=== PATIENT | female | born 2005 | race Caucasian/White ===

== ENCOUNTER 2025-01-18 13:15 | Emergency (ER) | payer OTHER, SELFPAY ==
[2025-01-18 13:20] VITALS: BP 134/99; PULSE 90; RESP 16; TEMP 37; O2SAT 100
--- OUTSIDE RECORDS SUMMARY | 2025-01-18 13:39 | XMS_ITS | Clinical Summary ---
Author Organization [facility] Address [address] [place] [address] Care Team Providers Care Express Manager Name Role Phone Provider, Not On File Primary Care Provider Unav ailable Allergies Active Allergy Reactions Criticality Noted Date Comments Amoxicillin-Pot Clavulanate Rash 04/15/19 25 Tolerates AMOX Medications estradiol (ESTRACE) 1 MG Tablet Take 1 mg by mouth daily. Hazardous: Medication requires special safe handling and disposal. Active SPIRONOLACTONE PO Take by mouth. Activ e ondansetron (ZOFRAN-ODT) 4 MG TABLET DISPERSIBLEIndi cations:Nausea Take 1 Tablet by mouth every 8 hours as needed for Nausea - 1st line. 30 Tablet 4 Active Additional Information Patient not taking.Reported on 10/25/2024 chlorhexidine (PERIDEX) 0.12 % SolutionIndicat ions:Dentalgia 15 mL by Swish & Spit route 2 times daily. 118 mL 4 Active naproxen (NAPROSYN) 500 MG TabletIndicatio ns:Dentalgia Take 1 Tablet by mouth 2 times daily (with meals). 60 Tablet 4 Active Acetaminophen-C affeine (EXCEDRIN TENSION HEADACHE PO) Take by mouth. Ac tive Active Problems No known active problems Encounters Date Type Department Care Team Description 10/25/2024 1:45 PM CDT Urgent Care Visit [facility] [place] [facility] [place] [address] [place] [address] Tegan Pinto, PURCHASING MANAGER, EQUIPMENT MAINTENANCE SUPERVISOR Dental infection (Primary Dx) Discharge Disposition: Discharged to home or Selfcare 10/25/2024 Travel from Last 3 Months Social History Tobacco Use Types Packs/Day Years Used Date Smoking Tobacco: Never Passive Smoke Exposure: Never Smokeless Tobacco: Never Tobacco Cessation:Counseling Given: Not Answered Sex and Gender Information Value Date Recorded Sex Assigned at Male 11/28/2023 6:02 PM CDT Legal Sex Male 9:10 AM SNUFF GRINDER AND SCREENER Gender Identity Female 11/28/2023 6:02 PM CDT Sexual Orientation Not on file Last Filed Vital Signs Vital Sign Reading Time Taken Comments Blood Pressure 116/69 10/25/2024 1:46 PM CDT Pulse 86 10/25/2024 1:46 PM CDT Temperature 36.5 C (97.7 F) 10/25/2024 1:46 PM CDT Respiratory Rate 16 10/25/2024 1:46 PM CDT Oxygen Saturation 97% 10/25/2024 1:46 PM CDT Inhaled Oxygen Concentration - - Weight 63.5 kg (140 lb) 10/25/2024 1:46 PM CDT Height 170.2 cm (5' 7) 10/25/2024 1:46 PM CDT Body Mass Index 21.93 10/25/2024 1:46 PM CDT Plan of Treatment Health Maintenance Due Date Last Done Comments Hepatitis C Virus (HCV) Screening 2003 Meningococcal B Immunization (1 of 2 - Standard) 2019 Influenza Immunization (#1) 2024 01/09/2024 SARS-COV-2 Immunization (3 - season) 2024 11/02/2020, 10/12/2020 Respiratory Syncytial Virus (RSV) Immunization (Adult) (1 - 1-dose 75+ series) 08/25/2078 Hepatitis B Immunization Completed 005, 05/30/2004, 01/12/2004, Additional history exists Pneumococcal Immunization Combined Aged Out 12/07/2004, 05/30/2004, 01/12/2004, Additional history exists No longer eligible based on patient's age to complete this topic Measles Mumps Rubella (MMR) Immunization Discontinued 10/23/2008, 12/07/2004 Polio (IPV) Immunization Discontinued 009, 10/23/2008, 05/30/2004, Additional history exists Varicella Immunization Discontinued 10/23/2008, 2004 Hepatitis A Immunization Discontinued 05/28/2014, 10/25 Human Papillomavirus (HPV) Immunization Completed 05/31/2016, 12/01/2015 Meningococcal Immunization (ACWY) Completed 01/12/2021, 11/23/2014 DTaP/Tdap/Td Immunization Discontinued 2023, 11/21/2013, 10/23/2008, Additional history exists TdaP Immunization Completed 07/10/2023, 11/21/2013 Rotavirus Immunization Aged Out No lo nger eligible based on patient's age to complete this topic Insurance ID [employer]CIAL [employer]IC on file MEDICAID [employer] Care Teams Express Manager Relationship Specialty Start Date End Date Provider, Not On File [place] PCP - General 06/16/23
--- OUTSIDE RECORDS SUMMARY | 2025-01-18 13:39 | XMS_ITS | Encounter Summary ---
Author Organization [facility] Address [address] [place] [address] Phone Care Team Providers Care Digital Computer Systems Analyst Name Role Phone Georgina Elias MD Primary Care Provider [phone] Encounter Details Date Type Department Care Team (Late st Contact Info) Description 03/22/2018 Scanned Document Non [facility] Referring Docs Provider, Outside Social History Tobacco Use Types Packs/Day Years Used Date Smoking Tobacco: Never Smokeless Tobacco: Never Sex and Gender Information Value Date Recorded Sex Assigned at Male 09/30/2021 4:03 PM CDT Legal Sex Male 4:03 PM CDT Gender Identity Female 09/30/2021 4:03 PM CDT Sexual Orientation Not on file documented as of this encounter Plan of Treatment Upcoming Encounters Date Type Department Care Team (Late st Contact Info) Description 03/25/2025 1:40 PM BARGE CAPTAIN Office Visit [facility] [address] [place] [address] Georgina Elias MD [address] [place] [address] documented as of this encounter Visit Diagnoses Not on filedocumented in this encounter Additional Health Concerns Infection Onset Date Last Indicated Resolved Time Suspected COVID-19 12/04/2019 12/04/2019 0 3:44 PM CDT Suspected COVID-19 02/11/2020 02/11/2020 0 9:17 PM BARGE CAPTAIN Suspected COVID-19 04/23/2020 04/23/2020 1 6:40 PM BARGE CAPTAIN Suspected COVID-19 01/22/2023 01/29/2023 3 10:04 PM BARGE CAPTAIN documented as of this encounter Care Teams Digital Computer Systems Analyst Relationship Specialty Start Date End Date Georgina Elias MD [address] [place] [address] PCP - General Family Medicine 06/09/21 documented as of this encounter
--- OUTSIDE RECORDS SUMMARY | 2025-01-18 13:39 | XMS_ITS | Encounter Summary ---
Author Organization [facility] Address [address] [place] [address] Phone Care Team Providers Care Towboat Engineer Name Role Phone Georgina Elias MD Primary Care Provider [phone] Reason for Visit * Reason Onset Date Comments Clinical SX During Covid-19 Outbreak 02/10/2020 Encounter Details Date Type Department Care Team (Late st Contact Info) Description 02/10/2020 Telephone [facility] [address] [place] [address] Kam Buckner DO [address] [place] [address] Clinical SX During Covid-19 Outbreak Social History Tobacco Use Types Packs/Day Years Used Date Smoking Tobacco: Never Smokeless Tobacco: Never Sex and Gender Information Value Date Recorded Sex Assigned at Male 09/30/2021 4:03 PM CDT Legal Sex Male 4:03 PM CDT Gender Identity Female 09/30/2021 4:03 PM CDT Sexual Orientation Not on file COVID-19 Exposure Response Date Recorded In the last month, have you been in contact with someone who was confirmed or suspected to have Coronavirus / COVID-19? No / Unsure 02/11/2020 9:35 AM ENGINEERING SUPERVISOR documented as of this encounter Miscellaneous Notes * Telephone Encounter - Zari Reyna - 02/10/2020 10:43 AM CST Patient called regarding possible COVID symptoms. Patient screened through [facility] COVID screening questions and advised to present to the approved testing site. Patient advised clinical staff on-site may re-screen. NEERING SUPERVISOR documented in this encounter Plan of Treatment Upcoming Encounters Date Type Department Care Team (Late st Contact Info) Description 03/25/2025 1:40 PM ENGINEERING SUPERVISOR Office Visit [facility] [place] [address] [place] [address] Georgina Elias MD [address] [place] [address] documented as of this encounter Visit Diagnoses Not on filedocumented in this encounter Additional Health Concerns Infection Onset Date Last Indicated Resolved Time Suspected COVID-19 02/11/2020 02/11/2020 0 9:17 PM ENGINEERING SUPERVISOR Suspected COVID-19 04/23/2020 04/23/2020 1 6:40 PM ENGINEERING SUPERVISOR Suspected COVID-19 01/22/2023 01/29/2023 3 10:04 PM ENGINEERING SUPERVISOR documented as of this encounter Care Teams Towboat Engineer Relationship Specialty Start Date End Date Georgina Elias MD [address] [place] [address] PCP - General Family Medicine 06/09/21 documented as of this encounter
--- OUTSIDE RECORDS SUMMARY | 2025-01-18 13:39 | XMS_ITS | Encounter Summary ---
Author Organization [facility] Address [address] [place] [address] Phone Care Team Providers Care Sourcing Analyst Name Role Phone Georgina Elias MD Primary Care Provider [phone] Encounter Details Date Type Department Care Team (Late st Contact Info) Description 11/24/2020 Telephone [facility] [address] [place] [address] Kam Buckner DO [address] [place], [place] [id number] Social History Tobacco Use Types Packs/Day Years Used Date Smoking Tobacco: Never Smokeless Tobacco: Never Sex and Gender Information Value Date Recorded Sex Assigned at Male 09/30/2021 4:03 PM CDT Legal Sex Male 4:03 PM CDT Gender Identity Female 09/30/2021 4:03 PM CDT Sexual Orientation Not on file documented as of this encounter Miscellaneous Notes * Telephone Encounter - Tatiana Hannon - 11/26/2020 4:45 PM CDT Scheduled 12/02/20 * Telephone Encounter - Monica Carter CMA - 11/24/2020 2:17 PM CDT Patient is scheduled for a [facility] visit tomorrow. Patient has not been seen since 2019. Needs physicalfor vaccines. documented in this encounter Plan of Treatment Upcoming Encounters Date Type Department Care Team (Late st Contact Info) Description 03/25/2025 1:40 PM PHARMACY TECHNICIAN INSTRUCTOR Office Visit [facility] [address] [place] [address] Georgina Elias MD [address] [place] [address] documented as of this encounter Visit Diagnoses Not on filedocumented in this encounter Additional Health Concerns Infection Onset Date Last Indicated Resolved Time Suspected COVID-19 01/22/2023 01/29/2023 10:04 PM PHARMACY TECHNICIAN INSTRUCTOR documented as of this encounter Care Teams Sourcing Analyst Relationship Specialty Start Date End Date Georgina Elias MD [address] [place] [address] PCP - General Family Medicine 06/09/21 documented as of this encounter
--- OUTSIDE RECORDS SUMMARY | 2025-01-18 13:39 | XMS_ITS | Encounter Summary ---
Author Organization [facility] Address [address] [place] [address] Phone Care Team Providers Care Pressure Tank Operator Name Role Phone Georgina Elias MD Primary Care Provider [phone] Encounter Details Date Type Department Care Team ([facility] Contact Info) Description 03/21/2021 Telephone [facility] [address], [place] [address] Kam Buckner DO [address] [place] [address] Social History Tobacco Use Types Packs/Day Years Used Date Smoking Tobacco: Every Day Cigarettes Smokeless Tobacco: Never Alcohol Use Standard Drinks/Week Comments Never 0 (1 standard drink = 0.6 oz pur e alcohol) Sex and Gender Information Value Date Recorded Sex Assigned at Male 09/30/2021 4:03 PM CDT Legal Sex Male 4:03 PM CDT Gender Identity Female 09/30/2021 4:03 PM CDT Sexual Orientation Not on file COVID-19 Exposure Response Date Recorded In the last month, have you been in contact with someone who was confirmed or suspected to have Coronavirus / COVID-19? No / Unsure 03/21/2021 2:31 PM HEAD REFRIGERATING ENGINEER documented as of this encounter Plan of Treatment Upcoming Encounters Date Type Department Care Team ([facility] Contact Info) Description 03/25/2025 1:40 PM HEAD REFRIGERATING ENGINEER Office Visit [facility] [address] [place] [address] Georgina Elias MD [address] [place] [address] documented as of this encounter Visit Diagnoses Not on filedocumented in this encounter Additional Health Concerns Infection Onset Date Last Indicated Resolved Time Suspected COVID-19 01/22/2023 01/29/2023 10:04 PM HEAD REFRIGERATING ENGINEER documented as of this encounter Care Teams Pressure Tank Operator Relationship Specialty Start Date End Date Georgina Elias MD [address] [place] [address] PCP - General Family Medicine 06/09/21 documented as of this encounter
--- OUTSIDE RECORDS SUMMARY | 2025-01-18 13:39 | XMS_ITS | Encounter Summary ---
Author Organization [facility] Address [address] [place] [address] Phone Care Team Providers Care Medical Researcher Name Role Phone Georgina Elias MD Primary Care Provider [phone] Reason for Visit * Reason Onset Date Comments Clinical SX During Covid-19 Outbreak 04/22/2020 Encounter Details Date Type Department Care Team (Late st Contact Info) Description 04/22/2020 Telephone [facility] Appointment Request [address] [place] [address] Kam Buckner, [address] [place] [address] Clinical SX During Covid-19 Outbreak [...] have Coronavirus / COVID-19? No / Unsure 04/12/2020 11:18 AM CLEARING SUPERVISOR documented as of this encounter Miscellaneous Notes * Telephone Encounter - Osito Cantu - 04/22/2020 1:10 PM CST Patient called to request COVID testing. COVID Related Symptoms: Fever, congestion, cough, runny nose Confirmed Exposure: No Pt screened through [facility] COVID guidelines and directed to report to testing site. Patient aware thaton-site clinical staff may pre-screen. RING SUPERVISOR documented in this encounter Plan of Treatment Upcoming Encounters Date Type Department Care Team (Late st Contact Info) Description 03/25/2025 1:40 PM CLEARING SUPERVISOR Office Visit [facility] [address] [place] [address] Georgina Elias MD [address] [place] [address] documented as of this encounter Visit Diagnoses Not on filedocumented in this encounter Additional Health Concerns Infection Onset Date Last Indicated Resolved Time Suspected COVID-19 04/23/2020 04/23/2020 1 6:40 PM CLEARING SUPERVISOR Suspected COVID-19 01/22/2023 01/29/2023 3 10:04 PM CLEARING SUPERVISOR documented as of this encounter Care Teams Medical Researcher Relationship Specialty Start Date End Date Georgina Elias MD [address] [place] [address] PCP - General Family Medicine 06/09/21 documented as of this encounter
--- OUTSIDE RECORDS SUMMARY | 2025-01-18 13:39 | XMS_ITS | Encounter Summary ---
Author Organization [employer] [facility] Address [address] [place] [address] Phone Care Team Providers Care Temperer Name Role Phone Georgina Elias MD Primary Care Provider [phone] Reason for Visit * Reason Onset Date Comments Results 12/05/2019 Encounter Details Date Type Department Care Team (Late st Contact Info) Description 12/05/2019 Telephone [facility] [address] [place] [address] Akash Rushing MD [address] [place] [address] Results Social History Tobacco Use Types Packs/Day Years [...] have Coronavirus / COVID-19? No / Unsure 12/04/2019 8:12 AM CDT documented as of this encounter Miscellaneous Notes * Telephone Encounter - Lorena Woodall RN - 12/05/2019 11:29 AM CDT Informed patient of negative COVID-19 results. Instructed patient to maintain the following precautions: The Centers of Disease Control (CDC) has advises to continue to stay home for 24 hours after resolution of fever without the use of fever-reducing medications and improvement in symptoms Patient verbalized understanding of instructions. documented in this encounter Plan of Treatment Upcoming Encounters Date Type Department Care Team (Late st Contact Info) Description 03/25/2025 1:40 PM DIRECTOR OF NEUROLOGY Office Visit [facility] [place] [address] [place] [address] Georgina Elias MD [address] [place] [address] documented as of this encounter Visit Diagnoses Not on filedocumented in this encounter Additional Health Concerns Infection Onset Date Last Indicated Resolved Time Suspected COVID-19 02/11/2020 02/11/2020 0 9:17 PM DIRECTOR OF NEUROLOGY Suspected COVID-19 04/23/2020 04/23/2020 1 6:40 PM DIRECTOR OF NEUROLOGY Suspected COVID-19 01/22/2023 01/29/2023 3 10:04 PM DIRECTOR OF NEUROLOGY documented as of this encounter Care Teams Temperer Relationship Specialty Start Date End Date Georgina Elias MD [address] [place] [address] PCP - General Family Medicine 06/09/21 documented as of this encounter
--- OUTSIDE RECORDS SUMMARY | 2025-01-18 13:39 | XMS_ITS | Clinical Summary ---
Author Organization [facility] Address [address] [place] [address] Phone Care Team Providers Care Security Nurse Name Role Phone Georgina Elias MD Primary Care Provider [phone] Allergies Active Allergy Reactions Criticality Noted Date Comments Amoxicillin-Pot Clavulanate Rash Low 04/15/19 25 Tolerates AMOX Medications * This document contains information received from the source organization and may not represent a complete record from that organization. ondansetron 4 mg rapid dissolve tablet Take 1 tablet by mouth every 8 (eight) hours as needed 4 Active naproxen (NAPROSYN) 500 mg tablet Take 500 mg by mouth 2 (two) times daily with meals 4 Active chlorhexidine gluconate 0.12 % mouthwash 15 mLs in the morning and at bedtime 4 Active spironolactone (ALDACTONE) 50 mg tabletIndication s:Zguh-je-lgfgoa transgender person Take 1 tablet (50 mg total) by mouth every day 90 tablet 3 4 Active estradioL (VIVELLE-DOT) 0.1 mg/24 hr twice weekly transderm patchIndications :Tark-ji-npyoqs transgender person Apply 1 patch topically 2 (two) times a week 8 patch 12 5 Active Active Problems Problem Noted Date Diagnosed Date Jjiy-ml-xapkmu transgender person 03/21/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 Autism spectrum disorder 11/13/2017 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 Resolved Problems Problem Noted Date Diagnosed Date Resolved Date Adolescent depression 10/27/20212023 Paronychia of great toe of right foot 04/30/2019 03/21/2021 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 11/13/2017 Immunizations Immunization Administration Dates Next Due DTaP-Acellular (Infanrix) 10/23/2008,,05/30/2004,01/11,2003 HEP B - Engerix 0.5ml 05/30/2004, 004,2003,08/25 HIB (ACTHIB) 04/20/2005, 5,01/12/2004,10/28 Hepatitis A - Pediatric 05/28/2014,11/21/2013 Human Papillomavirus (Gardasil 9) 05/31/2016,09/2015 INFLUENZA SPLIT VIRUS TRIVAL ENT PF (Fluzone/Flulaval/Fluarix/Afluria PF) 01/09/2024 Uxxvvcu-Ovtkc-Fkbavcd - MMR 10/23/2008, 5 Meningococcal (MENACTRA) 11/23/2014 Meningococcal (MENVEO) 01/12/2021 Pneumococcal Conjugate-13 (PREVNAR 13) 0 12/07/2004,05/30/2004,01/12/2004,10/28 Polio Virus (IPOL) 10/23/2008, 5,01/12/2004,10/28 SARS-CoV-2 (Pfizer Monovalen t COVID-19) 11/02/2020,10/12/2020 T-dap (BOOSTRIX) 07/10/2023,11/21/2013 Varicella (VARIVAX) 10/23/2008,12/07/2004 Social History Tobacco Use Types Packs/Day Years Used Date Smoking Tobacco: Former Cigarettes 0.3 2.5 2 - 09/2022 Smokeless Tobacco: Never Tobacco Cessation:Counseling Given: Not Answered Alcohol Use Standard Drinks/Week Comments Never 0 (1 standard drink = 0.6 oz pur e alcohol) Sex and Gender Information Value Date Recorded Sex Assigned at Male 09/30/2021 4:03 PM CDT Legal Sex Male 4:03 PM CDT Gender Identity Female 09/30/2021 4:03 PM CDT Sexual Orientation Not on file Last Filed Vital Signs Vital Sign Reading Time Taken Comments Blood Pressure 122/48 05/14/2024 3:08 PM GELATIN DYNAMITE PACKING OPERATOR Pulse 64 05/14/2024 3:08 PM GELATIN DYNAMITE PACKING OPERATOR Temperature 36.8 C (98.3 F) 05/14/2024 3:08 PM GELATIN DYNAMITE PACKING OPERATOR Respiratory Rate 18 04/25/2019 8:52 AM GELATIN DYNAMITE PACKING OPERATOR Oxygen Saturation 98% 01/09/2024 3:10 PM CDT Inhaled Oxygen Concentration - - Weight 71.8 kg (158 lb 3.2 oz) 05/14/2024 3:08 P M GELATIN DYNAMITE PACKING OPERATOR Height 172.7 cm (5' 8) 05/14/2024 3:08 PM GELATIN DYNAMITE PACKING OPERATOR Body Mass Index 24.05 05/14/2024 3:08 PM GELATIN DYNAMITE PACKING OPERATOR Plan of Treatment Upcoming Encounters Date Type Department Care Team (Late st Contact Info) Description 03/25/2025 1:40 PM GELATIN DYNAMITE PACKING OPERATOR Office Visit [facility] [address] [place] [address] Georgina Elias MD [address] [place] [address] Health Maintenance Due Date Last Done Comments Meningococcal B Vaccine (1 of 2 - Standard) 2019 Pap Smear 08/25/2024 COVID-19 Vaccine (3 - season) 2024 11/02/2020, 10/12/2020 Influenza Vaccine (#1) 2024 , 01/17/2021 (Declined) Depression Screening 01/08/2025 01/09/2024, 12/15/2021, 01/12/2021 DTaP/Tdap/Td Vaccines (8 - Td or Tdap) 07/09/2033 07/10/2023, 11/21/2013, 10/23/2008, Additional history exists Hepatitis B Vaccines Completed 05/30/2004, 01/12/2004, 2003, Additional history exists Pneumococcal Vaccines Completed 12/07/2004 , 05/30/2004, 01/12/2004, Additional history exists HIB Vaccines Completed 04/20/2005, 09/2004, 01/12/2004, Additional history exists IPV Vaccines Completed 10/23/2008, 09/2004, 01/12/2004, Additional history exists MMR Vaccines Completed 10/23/2008, 12/07/2004 Varicella Vaccines Completed 10/23/2008, 12/07/2004 Hepatitis A Vaccines Completed 05/28/2014, 11/22/19 HPV Vaccines Completed 05/31/2016, 12/01/2015 Meningococcal Vaccine (ACWY) Completed 01/12/2021, 11/23/2014 Rotavirus Vaccines Aged Out No longer eligible based on patient's age to complete this topic Insurance Member Subscriber Plan / Payer (Ef fective 2023-Present) Name:Wilberto Diaz Relation to Subscriber:Self Name:Wilberto Diaz Payer ID:[id number] Group ID:Not on file Type:Medicaid Address: [address] Member Subscriber Plan / Payer (Ef fective 2023-Present) Name:Wilberto Diaz Relation to Subscriber:Self Name:Wilberto Diaz Payer ID:[id number] Group ID:Not on file Type:Medicaid Address: [place] [id number] Care Teams Security Nurse Relationship Specialty Start Date End Date Georgina Elias MD [address] [place] [id number] PCP - General Family Medicine 06/09/21
--- OUTSIDE RECORDS SUMMARY | 2025-01-18 13:39 | XMS_ITS | Encounter Summary ---
Author Organization [facility] Address [address] [place] [address] Phone Care Team Providers Care Airline Counter Agent Name Role Phone Georgina Elias MD Primary Care Provider [phone] Reason for Visit * Reason Onset Date Comments !Other 01/18/2024 COVID shot Encounter Details Date Type Department Care Team (Late st Contact Info) Description 01/18/2024 Telephone [facility] [address], [place] [id number] Georgina Elias MD [address], [place] [address] !Other (COVID shot) Social History Tobacco Use Types Packs/Day Years Used Date Smoking Tobacco: Former Cigarettes 0.3 2.5 2 021 - 09/2022 Smokeless Tobacco: Never Alcohol Use Standard Drinks/Week Comments Never 0 (1 standard drink = 0.6 oz pur e alcohol) Sex and Gender Information Value Date Recorded Sex Assigned at Male 09/30/2021 4:03 PM CDT Legal Sex Male 4:03 PM CDT Gender Identity Female 09/30/2021 4:03 PM CDT Sexual Orientation Not on file documented as of this encounter Miscellaneous Notes * Telephone Encounter - Wilberto Mcknight - 01/23/2024 3:05 PM CDT Left another message * Telephone Encounter - Wilberto Mcknight - 01/18/2024 3:07 PM CDT Left message to inform patient that the [facility] office will not be doing her COVID shot, please have her reach out to the pharmacy to schedule that. documented in this encounter Plan of Treatment Upcoming Encounters Date Type Department Care Team (Late st Contact Info) Description 03/25/2025 1:40 PM DELIVERY CONSULTANT Office Visit [facility] [address] [place] [address] Georgina Elias MD [address] [place] [id number] documented as of this encounter Visit Diagnoses Not on filedocumented in this encounter Additional Health Concerns Assessment Noted Time A Hypertension Plan of Care has been documented for the patient 12/15/2021 9:41 AM CDT documented as of this encounter Care Teams Airline Counter Agent Relationship Specialty Start Date End Date Georgina Elias MD [address] [place] [id number] PCP - General Family Medicine 06/09/21 documented as of this encounter
--- OUTSIDE RECORDS SUMMARY | 2025-01-18 13:39 | XMS_ITS | Encounter Summary ---
Author Organization [facility] Address [address] [place] [address] Phone Care Team Providers Care [employer] Name Role Phone Georgina Elias MD Primary Care Provider [phone] Reason for Visit * Reason Onset Date Comments Clinical SX During Covid-19 Outbreak 12/04/2019 Encounter Details Date Type Department Care Team (Late st Contact Info) Description 12/04/2019 Telephone [facility] [address] [place] [address] Kam Buckner DO [address] [place] [address] Clinical SX During Covid-19 Outbreak [...] encounter Miscellaneous Notes * Telephone Encounter - [place] - 12/04/2019 8:05 AM CDT Patient called regarding <possible COVID symptoms. Patient screened through [facility] COVID screening questions and advised to present to the approved testing site. Patient advised clinical staff on-site may re-screen. documented in this encounter Plan of Treatment Upcoming Encounters Date Type Department Care Team (Late st Contact Info) Description 03/25/2025 1:40 PM [employer] Office Visit [facility] [address] [place] [address] Georgina Elias MD [address] [place] [id number] documented as of this encounter Visit Diagnoses Not on filedocumented in this encounter Additional Health Concerns Infection Onset Date Last Indicated Resolved Time Suspected COVID-19 12/04/2019 12/04/2019 0 3:44 PM CDT Suspected COVID-19 02/11/2020 02/11/2020 0 9:17 PM [employer] Suspected COVID-19 04/23/2020 04/23/2020 1 6:40 PM [employer] Suspected COVID-19 01/22/2023 01/29/2023 3 10:04 PM [employer] documented as of this encounter Care Teams [employer] Relationship Specialty Start Date End Date Georgina Elias MD [address] [place] [id number] PCP - General Family Medicine 06/09/21 documented as of this encounter
--- NOTE | 2025-01-18 13:49 | ED_ITS ---
HPI - Dental/Oral General Chief complaint: Dental/Oral Stated complaint: DENTAL INFECTION Time Seen by Provider: 01/18/25 13:17 History of Present Illness HPI Narrative: 19-year-old female presenting with dental pain. Pain infection in her right lower jaw. Already started antibiotics on day 3 of Augmentin. Patient saw the dentist who referred her to an [facility] for dental extraction but given insurance issues has not made this appointment yet. Denies any systemic symptoms. States the pain is refractory to Tylenol and ibuprofen as well as Orajel. States that she broke her tooth on some food and then has been having recurrent infections in this tooth since. Was otherwise in her normal state of health. Teeth map: 2 1. Dental fracture with dental decay. No periapical abscess formation or any fluctuance or tenderness with palpation. No swelling. 2. Dental decay with no signs of infection Related Data Allergies Allergy/AdvReac Type Severity Reaction Status Date / Time No Known Allergies Allergy Verified 01/18/25 13:23 Review of Systems 2 Review of Systems: As reviewed above in HPI Exam 2 Narrative: GENERAL: [Well-appearing, well-nourished, and in no acute distress.] HEAD: [Normocephalic, atraumatic.] EYES: [PERRLA and EOMI.] ENT: Significant dental disease in right premolar lower jaw, symptomatic in the right lower molar with dental fracture evident with caries but no periapical abscess or fluctuance. No tenderness with palpation. No lymphadenopathy in the neck. No brawny neck edema. No trismus. Uvula midline. NECK: Supple. CHEST: No respiratory distress, symmetric chest rise ABDOMEN: Nondistended EXTREMITIES: Normal range of motion. [No edema.] SKIN: Warm, dry, no rash. NEURO: [No focal deficits]. Alert and oriented [x3.] PSYCH: [Normal mood and affect.] Course Vital Signs Vital signs: Vital Signs Temperature 37.0 C 01/18/25 13:20 Pulse Rate 90 01/18/25 13:20 Respiratory Rate 16 01/18/25 13:20 Blood Pressure 134/99 H 01/18/25 13:20 Pulse Oximetry 100 01/18/25 13:20 Oxygen Delivery Room Air 01/18/25 13:20 Temperature 37.0 C 01/18/25 13:20 Pulse Rate 90 01/18/25 13:20 Respiratory Rate 16 01/18/25 13:20 Blood Pressure 134/99 H 01/18/25 13:20 Pulse Oximetry 100 01/18/25 13:20 Oxygen Delivery Room Air 01/18/25 13:20 MDM - Dental/Oral MDM Narrative Medical decision making narrative: 19-year-old female presenting with dental pain. Pain infection in her right lower jaw. Already started antibiotics on day 3 of Augmentin. Patient saw the dentist who referred her to an [facility] for dental extraction but given insurance issues has not made this appointment yet. Denies any systemic symptoms. States the pain is refractory to Tylenol and ibuprofen as well as Orajel. States that she broke her tooth on some food and then has been having recurrent infections in this tooth since. Was otherwise in her normal state of health. Significant dental disease in right premolar lower jaw, symptomatic in the right lower molar with dental fracture evident with caries but no periapical abscess or fluctuance. No tenderness with palpation. No lymphadenopathy in the neck. No brawny neck edema. No trismus. Uvula midline. Hemodynamically stable. No tachycardia, fever, hypoxemia or significant blood pressure concerns. Patient has dental caries and dental fracture that needs to be managed outpatient. No emergent concerns raised on exam but given refractory pain will prescribe narcotic based pain medicines until they can see a appropriate position. We do not have a dental surgeon at this facility or anyone in the area we can refer to and patient was provided several places to try to contact. Given return precautions and prescription for Magic mouthwash and oxycodone. Safe for discharge home at this time with return precautions. Medical Records Attestation: I reviewed the patient's medical records. Discharge Plan Discharge Clinical Impression: Dental caries, Toothache, Fracture of tooth Patient Disposition: Home Condition: Stable Instructions: Antibiotic Form, Toothache (ED) Additional Instructions: Dentistry/OMFS will need to help manage your symptoms with likely tooth extraction verses root canal based on your tooth findings. We can give you strong pain medicines for short course but ultimately you will need to find a provider that takes your insurance. We do not have OMFS or dentistry available to our system for referral. Larger hospital systems like [facility], [facility], [facility] might be able to help. Return with emergent concerns and finish your current course of antibiotics. Patient Language: Greek Prescriptions: New oxycodone 5 mg tablet 5 mg PO Q8H PRN (Reason: pain) Qty: 14 0RF lidocaine HCl [Lidocaine Viscous] 2 % solution 1 applic mucous membrane QID PRN (Reason: pain) Qty: 100 0RF Follow-up/Referrals: King Becerril MD [Physician, Pediatrics] Time of Disposition: 13:41
[2025-01-18] MEDS: LIDOCAINE 2% VISC SOLN 30 ML, ALUMINUM/MAGNESIUM/SIMETH SUSP 30 ML, diphenhydrAMINE HCl... PO (14:49)
== END 2025-01-18 14:56 | disposition home or self-care (01) ==
PROVIDERS: Emergency Provider Student in an Organized Health Care Education/Training Program
DX: S02.5XXA Fracture of tooth (traumatic), initial encounter for closed fracture (principal); X58.XXXA Exposure to other specified factors, initial encounter
CPT/HCPCS: 99283; A9270